=== PATIENT | male | born 1935 | race Caucasian/White ===

== ENCOUNTER 2017-10-27 10:17 | Inpatient (IN) ==
[2017-10-31 12:23] VITALS: BP 116/72
== END 2017-10-31 15:30 | disposition expired | DRG 292 ==
LOC: N.ED 10:17 → SUATTDRO 13:42 → N.EDINP 13:42 → N.TELES 14:04 → N.CC 10-31 12:45
PROVIDERS: ADMIT Internal Medicine; ATTEND Internal Medicine Nephrology